=== PATIENT | female | born 1995 | race Caucasian/White ===

== ENCOUNTER 2021-10-09 05:21 | Inpatient (IN) ==
[2021-10-09 07:30] LABS: Basophils % 0.3 %; Eosinophils # 0.1 K/mcL (0.0-0.6); Eosinophils % 0.8 %; Hemoglobin 13.6 g/dL (11.5-15.4); Immature Granulocytes % 0.6 % (0-4); Lymphocytes # 2.3 K/mcL (0.6-4.6); Lymphocytes % 22.6 %; Mean Corpuscular HGB Conc 33.2 g/dL (31.6-35.5); Mean Corpuscular Hemoglobin 29.6 pg (28.0-33.3); Mean Corpuscular Volume 89.1 fL (83.0-100.0); Mean Platelet Volume 12.1 fL (9.4-12.4); Monocytes # 1.1 K/mcL (0.0-1.3); Monocytes % 10.7 %; Neutrophils # 6.5 K/mcL (1.6-8.9); Platelet Count 176 K/mcL (140-400); Red Cell Distribution Width 13.7 % (11.5-14.5)
[2021-10-09 07:46] LABS: Alanine Aminotransferase 18 Units/L (7-52); Aspartate Amino Transferase 24 Units/L (13-39); BUN/Creatinine Ratio 16 (6-26); Blood Urea Nitrogen 10 mg/dL (6-20); Lactate Dehydrogenase 176 Units/L (140-271); Uric Acid 6.2 mg/dL (2.3-7.6); eGFR For African Americans > 60 (> 60); eGFR For Non-African Americans > 60 (> 60)
[2021-10-09 08:22] LABS: Protein/Creatinine Ratio,Urine 0.18 mg/mg (0.00-0.20)
[2021-10-09] MEDS ORDERED: cefTRIAXone 1,000 MG in 0.9 % Sodium Chloride 10 ML IVP ONE (09:29)
[2021-10-09] MEDS ORDERED: Famotidine 20 MG/2 ML VIAL IVP PRN (09:34)
[2021-10-09] MEDS ORDERED: Metoclopramide 10 MG/2 ML VIAL IVP PRN (09:34)
[2021-10-09] MEDS ORDERED: Naloxone 0.4 MG/ML INJ IVP PRN (09:34)
[2021-10-09] MEDS ORDERED: EPHEDrine 50 MG/ML VIAL IVP PRN (10:50)
[2021-10-09] MEDS ORDERED: Oxytocin 20 units/ LR 1000 mL 20 UNIT/1,000 ML BAG IVC ONE ×3 (12:41→19:09)
[2021-10-09] MEDS ORDERED: *HR* FentaNYL (PF) 100 MCG/2 ML VIAL ONE (13:42)
[2021-10-09] MEDS ORDERED: Ropivacaine/PF 0.2% 20 ML VIAL ONE (13:42)
[2021-10-09] MEDS: Epidural Premix (fent/bupiv) 110 ML EP SCH ×2 (14:08→19:05)
[2021-10-09] MEDS: Ringers Solution, Lactated 1,000 ML IVC SCH ×2 (14:10→15:53)
[2021-10-09] MEDS ORDERED: Ibuprofen 600 MG TABLET PO ONE (18:22)
[2021-10-09] MEDS ORDERED: Rho Immune Globulin 1,500 UNIT SYRINGE IM PRN (19:09)
[2021-10-09] MEDS ORDERED: Oxytocin 20 units/ LR 1000 mL 20 UNIT/1,000 ML BAG IVC SCH (19:09)
[2021-10-09] MEDS ORDERED: Benzocaine/Menthol 56 GM AEROSOL SPRAY TP PRN (19:09)
[2021-10-09] MEDS ORDERED: Acetaminophen 325 MG TABLET PO SCH (19:09)
[2021-10-09] MEDS ORDERED: Lanolin 7 G OINT...G. TP PRN (19:09)
[2021-10-09] MEDS ORDERED: Measles/Mumps/Rubella Vacc 0.5 ML VIAL SQ PRN (19:09)
[2021-10-09] MEDS ORDERED: Ondansetron ODT 4 MG TAB.RAPDIS SL PRN (19:09)
[2021-10-09] MEDS ORDERED: Ibuprofen 600 MG TABLET PO SCH (21:23)
[2021-10-10 06:13] LABS: Basophils % 0.2 %; Eosinophils % 0.3 %; Hematocrit 37.6 % (35.3-44.9); Hemoglobin 12.4 g/dL (11.5-15.4); Immature Granulocytes % 0.4 % (0-4); Lymphocytes # 2.4 K/mcL (0.6-4.6); Lymphocytes % 17.1 %; Mean Corpuscular Hemoglobin 29.4 pg (28.0-33.3); Mean Corpuscular Volume 89.1 fL (83.0-100.0); Mean Platelet Volume 12.4 fL (9.4-12.4); Monocytes # 1.5 K/mcL (0.0-1.3); Monocytes % 10.4 %; Neutrophils # 9.9 K/mcL (1.6-8.9); Platelet Count 157 K/mcL (140-400); Red Blood Count 4.22 M/mcL (3.82-4.97); Segmented Neutrophils % 71.6 %; White Blood Count 13.9 K/mcL (4.3-11.1)
[2021-10-10 07:07] VITALS: BP 126/81; PULSE 87; TEMP 98; O2SAT 96
[2021-10-10] MEDS ORDERED: Prenatal Vit/FA 1 EACH TABLET PO SCH (09:00)
== END 2021-10-10 14:55 | disposition home or self-care (01) | DRG 807 ==
LOC: 1NENULAB → 1NENUOBS 20:19
PROVIDERS: ADMIT Registered Nurse; ATTEND Registered Nurse